=== PATIENT | female | born 1940 | race Two or more races ===

== ENCOUNTER 2023-10-17 14:16 | Inpatient (IN) | payer MEDICARE, OTHER ==
[~2023-10-17] VITALS: Ht 167.6 cm; Wt 64.9 kg
[2023-10-17 15:27] LABS: Basophils # (auto) 0.1 10 ^3/uL (0-0.2); Basophils % (auto) 1.1 % (0.0-2.0); Eosinophils # (auto) 0.1 10 ^3/uL (0-0.8); Eosinophils % (auto) 2.3 % (0.0-7.0); Hematocrit 29.6 % (36.0-46.0); Hemoglobin 9.8 g/dL (12.2-16.2); Lymphocytes # (auto) 0.6 10 ^3/uL (0.4-5.4); Lymphocytes % (auto) 10.4 % (10.0-50.0); Mean Corpuscular Hemoglobin 30.7 pg (28.0-32.0); Mean Corpuscular Hgb Conc. 32.9 g/dL (32.0-36.0); Mean Corpuscular Volume 93.2 fL (80.0-100.0); Monocytes # (auto) 0.6 10 ^3/uL (0-1.3); Monocytes % (auto) 9.3 % (0.0-12.0); Neutrophils # (auto) 4.7 10 ^3/uL (1.6-8.6); Neutrophils % (auto) 76.9 % (37.0-80.0); Nucleated Red Blood Cells % 0.1 %; Red Blood Cells 3.18 10^6/uL (4.0-5.20); Red Cell Distribution Width 15.6 % (11.8-14.3); White Blood Cell 6.1 10^3/uL (4.4-10.8)
[2023-10-17 15:45] LABS: Alanine Aminotransferase 27 U/L (7-40); Alkaline Phosphatase 57 U/L (46-116); Anion Gap 8 (5-15); Aspartate Aminotransferase 23 U/L (13-40); BUN/Creatinine Ratio 14.6 (10.0-20.0); Blood Urea Nitrogen 25 mg/dL (9-23); Calcium 9.5 mg/dL (8.7-10.4); Carbon Dioxide 24 mmol/L (20-30); Chloride 111 mmol/L (98-107); Glucose 91 mg/dL (74-106); Potassium 4.4 mmol/L (3.5-5.1); Sodium 143 mmol/L (136-145)
[2023-10-17 15:46] LABS: Albumin 3.8 g/dL (3.2-4.8); Bilirubin, Total 0.4 mg/dL (0.2-1.0); Total Protein 5.6 g/dL (5.7-8.2)
[2023-10-17 16:00] LABS: INR 1.03 (0.9-1.15); Partial Thromboplastin Time 27.1 SEC (24.5-34.5); Prothrombin Time 10.9 sec (9.3-11.8)
[2023-10-17] MEDS ORDERED: NITROGLYCERIN 0.4 MG SL TAB SL PRN (20:45)
[2023-10-17] MEDS ORDERED: ONDANSETRON HCL 4 MG/2 ML VIAL IV PRN (20:45)
[2023-10-17] MEDS ORDERED: ACETAMINOPHEN 325 MG TAB PO PRN (20:45)
[2023-10-17] MEDS ORDERED: MORPHINE SULFATE INJ 2 MG/ml SYRG IV PRN (20:45)
[2023-10-17] MEDS: ATORVASTATIN 20 MG TAB PO SCH (23:00)
[2023-10-18] VITALS (9 sets, daily range): BP systolic 128–180; BP diastolic 45–57; PULSE 63–85; RESP 14–20; TEMP 97.6–98.7; O2SAT 97–100
[2023-10-18] MEDS: cloNIDine HCL 0.1 MG TAB PO ONE (04:57)
[2023-10-18 06:42] LABS: Chloride 112 mmol/L (98-107); Potassium 4.2 mmol/L (3.5-5.1); Sodium 145 mmol/L (136-145)
[2023-10-18 06:43] LABS: Anion Gap 9 (5-15); Carbon Dioxide 24 mmol/L (20-30)
[2023-10-18 06:44] LABS: Calcium 9.3 mg/dL (8.7-10.4)
[2023-10-18 06:48] LABS: BUN/Creatinine Ratio 7.7 (10.0-20.0); Blood Urea Nitrogen 13 mg/dL (9-23); Glucose 104 mg/dL (74-106)
[2023-10-18] MEDS: ASPirin 81 mg TAB PO SCH (10:00)
[2023-10-18] MEDS: ENOXAPARIN SOD 30 MG/0.3 ML SYRINGE SC SCH (10:00)
[2023-10-18] MEDS: CLOPIDOGREL BISULFATE 75 MG TAB PO SCH (10:01)
[2023-10-18] MEDS: dilTIAZem 120MG ER CAP PO SCH (10:03)
[2023-10-18] MEDS: VALSARTAN 80 MG TAB PO SCH (10:12)
[2023-10-18 12:22] LABS: Triglycerides 64 mg/dL (< 150)
[2023-10-18 12:23] LABS: LDL Cholesterol 59 mg/dL (< 100)
[2023-10-18 12:24] LABS: Cholesterol 136 mg/dL (< 200); HDL Cholesterol 58 mg/dL (40-59)
[2023-10-18] MEDS: LABETALOL HCL 5 MG/ML 4ML SYRINGE IV PRN (15:32)
[2023-10-19] VITALS (8 sets, daily range): BP systolic 102–166; BP diastolic 44–74; PULSE 69–98; RESP 14–18; TEMP 97.8–98.4; O2SAT 96–99
[2023-10-19 06:30] LABS: Basophils # (auto) 0.1 10 ^3/uL (0-0.2); Eosinophils # (auto) 0.2 10 ^3/uL (0-0.8); Hematocrit 25.2 % (36.0-46.0); Hemoglobin 8.3 g/dL (12.2-16.2); Monocytes # (auto) 0.5 10 ^3/uL (0-1.3); Neutrophils # (auto) 1.8 10 ^3/uL (1.6-8.6); Nucleated Red Blood Cells % 0.2 %; Red Blood Cells 2.66 10^6/uL (4.0-5.20); White Blood Cell 3.4 10^3/uL (4.4-10.8)
[2023-10-19 06:32] LABS: Basophils % (auto) 2.8 % (0.0-2.0); Eosinophils % (auto) 6.6 % (0.0-7.0); Lymphocytes # (auto) 0.9 10 ^3/uL (0.4-5.4); Lymphocytes % (auto) 25.3 % (10.0-50.0); Mean Corpuscular Hemoglobin 31.2 pg (28.0-32.0); Mean Corpuscular Hgb Conc. 32.9 g/dL (32.0-36.0); Mean Corpuscular Volume 94.8 fL (80.0-100.0); Monocytes % (auto) 13.5 % (0.0-12.0); Neutrophils % (auto) 51.8 % (37.0-80.0); Red Cell Distribution Width 15.5 % (11.8-14.3)
[2023-10-19 06:38] LABS: Chloride 114 mmol/L (98-107); Potassium 4.2 mmol/L (3.5-5.1); Sodium 145 mmol/L (136-145)
[2023-10-19 06:39] LABS: Anion Gap 7 (5-15); Carbon Dioxide 24 mmol/L (20-30)
[2023-10-19 06:40] LABS: Calcium 8.7 mg/dL (8.5-10.1)
[2023-10-19 06:45] LABS: BUN/Creatinine Ratio 8.6 (10.0-20.0); Blood Urea Nitrogen 16 mg/dL (9-23); Glucose 102 mg/dL (74-106)
[2023-10-19 07:06] LABS: Free Thyroxine Index 3.9 (1.2-4.9); Thyroxine (T4) 10.7 ug/dL (4.5-12.0)
[2023-10-19 10:09] LABS: % Iron Saturation 19.2 % (15-50)
[2023-10-19 11:51] LABS: Urine Bacteria None Seen /hpf (None Seen)
[2023-10-19 12:10] LABS: Urine Blood Negative /uL (Negative); Urine Clarity Clear (Clear); Urine Color Light-Yellow (Yellow); Urine Protein, UAD 1+ (Negative); Urine Specific Gravity 1.013 (1.001-1.035); Urine Urobilinogen Normal (Negative); Urine WBC 20 /hpf (0 - 5); Urine pH 7.5 (5.0-9.0)
[2023-10-19] MEDS: hydrALAZINE HCL 20 MG/ML VL IV PRN (12:48)
[2023-10-19] MEDS: LACTULOSE 20Gm/30ML SOLN PO ONE (13:00)
[2023-10-19] MEDS: amLODIPine BESYLATE 5 MG TAB PO ONE (13:23)
[2023-10-19] MEDS: PANTOPRAZOLE 40 MG/10 ML VIAL INJ IV ONE (16:36)
[2023-10-19] MEDS: METOPROLOL SUCCINATE XL 50 MG TAB PO ONE (16:44)
[2023-10-19 18:49] LABS: Hematocrit 27.8 % (36.0-46.0); Hemoglobin 9.1 g/dL (12.2-16.2)
[2023-10-19 20:36] LABS: Amphetamine Screen, Urine Neg (NEGATIVE); Barbiturate Scree,Urine Neg (NEGATIVE); Benzodiazephine Screen, Urine Neg (NEGATIVE); Cocaine Screen, Urine Neg (NEGATIVE); Opiate Scree,Urine Neg (NEGATIVE); Phencyclidine Screen, Urine Neg (NEGATIVE)
[2023-10-19 20:37] LABS: Cannabinoid Screen, Urine Neg (NEGATIVE)
[2023-10-19 20:38] LABS: Creatinine, Urine 97.1 mg/dL (30.0-125.0)
[2023-10-19] MEDS: cefTRIAXone 1GM/50ML D5W 50 ML IV ONE (20:51)
[2023-10-19] MEDS: PANTOPRAZOLE 40 MG/10 ML VIAL INJ IV SCH (22:15)
[2023-10-20] VITALS (8 sets, daily range): BP systolic 137–169; BP diastolic 51–69; PULSE 60–77; RESP 17–19; TEMP 97.6–98.8; O2SAT 93–99
[2023-10-20] MEDS: TEMAZEPAM 15 MG CAP PO ONE ×2 (00:46→22:09)
[2023-10-20] MEDS: cefTRIAXone 1GM/50ML D5W 50 ML IV SCH (09:57)
[2023-10-20] MEDS: amLODIPine BESYLATE 5 MG TAB PO SCH (09:58)
[2023-10-20] MEDS: METOPROLOL SUCCINATE XL 50 MG TAB PO SCH (09:59)
[2023-10-20] MEDS: diphenhdrAMINE HCL 25 MG CAP PO PRN (11:52)
[2023-10-21] VITALS (8 sets, daily range): BP systolic 148–167; BP diastolic 58–76; PULSE 65–78; RESP 12–20; TEMP 97.3–98; O2SAT 98–100
[2023-10-21] MEDS: MELATONIN 5 MG TAB PO ONE (02:17)
[2023-10-21 08:33] LABS: Basophils # (auto) 0.1 10 ^3/uL (0-0.2); Eosinophils # (auto) 0.3 10 ^3/uL (0-0.8); Eosinophils % (auto) 5.4 % (0.0-7.0); Hematocrit 33.9 % (36.0-46.0); Hemoglobin 10.5 g/dL (12.2-16.2); Lymphocytes # (auto) 0.8 10 ^3/uL (0.4-5.4); Lymphocytes % (auto) 14.9 % (10.0-50.0); Mean Corpuscular Hgb Conc. 31.1 g/dL (32.0-36.0); Mean Corpuscular Volume 99.8 fL (80.0-100.0); Monocytes # (auto) 0.5 10 ^3/uL (0-1.3); Monocytes % (auto) 9.5 % (0.0-12.0); Neutrophils # (auto) 3.8 10 ^3/uL (1.6-8.6); Neutrophils % (auto) 69.2 % (37.0-80.0); Red Cell Distribution Width 15.7 % (11.8-14.3); White Blood Cell 5.5 10^3/uL (4.4-10.8)
[2023-10-21 09:01] LABS: Alanine Aminotransferase 20 U/L (7-40); Alkaline Phosphatase 60 U/L (46-116); Anion Gap 8 (5-15); BUN/Creatinine Ratio 8.7 (10.0-20.0); Blood Urea Nitrogen 13 mg/dL (9-23); Calcium 9.3 mg/dL (8.5-10.1); Carbon Dioxide 21 mmol/L (20-30); Chloride 117 mmol/L (98-107); Glucose 88 mg/dL (74-106); Potassium 4.4 mmol/L (3.5-5.1); Sodium 146 mmol/L (136-145)
[2023-10-21 09:02] LABS: Albumin 3.7 g/dL (3.2-4.8); Aspartate Aminotransferase 22 U/L (13-40); Bilirubin, Total 0.5 mg/dL (0.2-1.0); Total Protein 5.7 g/dL (5.7-8.2)
[2023-10-21] MEDS ORDERED: SUCR1TAB31 OR ×2 (15:32→17:28)
[2023-10-21] MEDS ORDERED: LEVO125T7 PO ×2 (15:32→17:28)
[2023-10-21] MEDS ORDERED: PANT40T PO ×2 (15:32→17:28)
[2023-10-21] MEDS: SUCRALFATE 1 GM/10 ML ORAL SUSP GT SCH (17:00)
[2023-10-21] MEDS ORDERED: CARVEDILOL 12.5 MG TAB PO SCH (22:00)
[2023-10-22] MEDS ORDERED: CLOPIDOGREL BISULFATE 75 MG TAB PO SCH (10:00)
== END 2023-10-21 18:20 | disposition home or self-care (01) | DRG 917 ==
LOC: ER 14:16 → EDBD 14:16 → TELE 20:59 → TELE-WESTW 10-18 04:05
PROVIDERS: ADMIT Internal Medicine; ATTEND Internal Medicine
PROC: 0DB78ZX Excision of Stomach, Pylorus, Via Natural or Artificial Opening Endoscopic, Diagnostic (ICD-10-PCS; 2023-10-21)
PROC: 0DB68ZZ Excision of Stomach, Via Natural or Artificial Opening Endoscopic (ICD-10-PCS; 2023-10-21)
PROC: 0DB98ZX Excision of Duodenum, Via Natural or Artificial Opening Endoscopic, Diagnostic (ICD-10-PCS; principal; 2023-10-21 11:32)
DX: T38.1X1A Poisoning by thyroid hormones and substitutes, accidental (unintentional), initial encounter (principal); N17.0 Acute kidney failure with tubular necrosis; I49.1 Atrial premature depolarization; I12.9 Hypertensive chronic kidney disease with stage 1 through stage 4 chronic kidney disease, or unspecified chronic kidney disease; I25.10 Atherosclerotic heart disease of native coronary artery without angina pectoris; I16.0 Hypertensive urgency; E78.5 Hyperlipidemia, unspecified; E89.0 Postprocedural hypothyroidism; D63.8 Anemia in other chronic diseases classified elsewhere; N18.32 Chronic kidney disease, stage 3b; K31.7 Polyp of stomach and duodenum; K29.70 Gastritis, unspecified, without bleeding; K44.9 Diaphragmatic hernia without obstruction or gangrene; Z98.61 Coronary angioplasty status; Z88.1 Allergy status to other antibiotic agents; Z87.891 Personal history of nicotine dependence; Y92.89 Other specified places as the place of occurrence of the external cause; Z79.82 Long term (current) use of aspirin
CPT/HCPCS: 36415; 71045; 76775; 80048; 80053; 80061; 80307; 81001; 82270; 82306; 82570; 82607; 82728; 83010; 83036; 83540; 83550; 83615; 83735; 83880; 84300; 84443; 84484; 85014; 85018; 85025; 85610; 85730; 86850; 86900; 86901; 93005; 93306; 96372; C9113; G0378; J3490

== ENCOUNTER 2024-11-23 09:34 | Day surgery (SDC) | payer MEDICARE, OTHER ==
[2024-11-20 13:32] LABS: Urine Protein, UAD Negative (Negative)
[2024-11-20 13:36] LABS: Hematocrit 28.4 % (36.0-46.0); Hemoglobin 9.9 g/dL (12.2-16.2); Mean Corpuscular Hemoglobin 31.3 pg (28.0-32.0); Mean Corpuscular Volume 90.1 fL (80.0-100.0); Nucleated Red Blood Cells % 0.1 %
[2024-11-20 13:37] LABS: Albumin 4.3 g/dL (3.2-4.8); Alkaline Phosphatase 65 U/L (46-116); Anion Gap 6 (5-15); BUN/Creatinine Ratio 16.8 (10.0-20.0); Calcium 10.1 mg/dL (8.7-10.4); Carbon Dioxide 29 mmol/L (20-31); Chloride 98 mmol/L (98-107); Potassium 4.2 mmol/L (3.5-5.1); Total Protein 6.1 g/dL (5.7-8.2)
[2024-11-20 13:38] LABS: Bilirubin, Total 0.4 mg/dL (0.2-1.0)
[2024-11-20 13:43] LABS: Alanine Aminotransferase 45 U/L (7-40); Blood Urea Nitrogen 53 mg/dL (9-23); Glucose 129 mg/dL (74-106); Sodium 133 mmol/L (136-145)
[2024-11-20 14:06] LABS: INR 0.97 (0.9-1.15); Partial Thromboplastin Time 27.9 SEC (24.5-34.5); Prothrombin Time 10.3 sec (9.3-11.8)
[~2024-11-23] VITALS: Ht 167.6 cm; Wt 54.4 kg
[~2024-11-23 09:34] MED LIST: ATOR10TA52 PO; CALC0.25 PO; CLON0.1T PO; CLOP75TA28 PO; DILT-29 PO; EZET10TA22 PO; FAMO20TA10 PO; FERR1TAB31 PO; FLUT1SPR5; HYDR-4924 PO; LEV75T PO; LEVO125T7 PO; PANT40T PO; VALS40TA2 PO
[2024-11-23] MEDS ORDERED: MIDAZOLAM HCL 2MG/2ML 2ml VIAL (1mg/ml) ONE (10:28)
[2024-11-23] MEDS ORDERED: PROPOFOL 10 MG/ML 20 ML IV ONE (10:28)
[2024-11-23] MEDS ORDERED: fentaNYL CITRATE 100 MCG/2 ML VL ONE (10:28)
[2024-11-23] MEDS ORDERED: LIDOCAINE 2% (LOCAL ANESTH.) PF 5ml SDV ONE (10:28)
[2024-11-23] MEDS ORDERED: HYDROmorphone HCL 2 MG/ML VL/or syr IV PRN (10:45)
[2024-11-23 11:00] VITALS: PULSE 60; RESP 16; TEMP 97.4; O2SAT 100
--- NOTE | 2024-11-23 11:04 | DVHOP2 ---
Operative Report DATE OF OPERATION: 11/23/24 PROCEDURE: Colonoscopy with cold biopsy polypectomy. PREOPERATIVE INDICATION: The patient is a 84 -year-old female undergoing colonoscopy for surveillance with personal history of colon polyps, anemia and heme-positive stools POSTOPERATIVE DIAGNOSES: 1. Patient had two diminutive benign-appearing sigmoid excrescences that were seen and removed by cold biopsy forceps 2. 1+ slightly inflamed internal hemorrhoids with hypertrophied anal papilla 3. Mild tortuosity of the colon otherwise normal examination up to the ileocolonic anastomosis PROCEDURE PERFORMED BY: Suzie Francisco M.D. SCOPE: Olympus videocolonoscope. ASA CLASS: 3. PREOPERATIVE MEDICATIONS: Mac sedationDr. Daley PROCEDURE IN DETAIL: After obtaining an informed consent, the patient was placed on left lateral decubitus position. She was then sedated with the above medications. A rectal examination was performed that was normal. The colonoscope was then passed through the anus into the rectosigmoid and through the descending, transverse, and ascending colon up to the ileocolonic anastomosis The colonoscope was then withdrawn with careful visualization of all olivarez No masses or colitis were noted. There was no clear-cut diverticular disease.. There were two diminutive benign-appearing sigmoid excrescences that were removed by cold biopsy forceps She had mild tortuosity of the colon. On retroflexion she had 1+ inflamed internal hemorrhoids with hypertrophied anal papilla The patient tolerated the procedure well without difficulty. WITHDRAWAL TIME: 8 minutes, not applicable QUALITY OF THE PREP: [place] Bowel Prep score: 9. COMPLICATIONS : None SPECIMENS: Sigmoid polyps DISPOSITION: Stable D/C to home PLAN: 1. Repeat colonoscopy base on biopsy result likely in 4-5 yrs 2. Resume GI soft diet advance as tolerated 3. Local anorectal hemorrhoidal care 4. Outpatient follow up with me in 4-6 weeks to review results and discuss further management SUZIE FRANCISCO MD Nov 23, 2024 11:03
[2024-11-23 11:50] VITALS: BP 158/59; PULSE 73; RESP 16; O2SAT 98
[2024-11-23] MEDS: ONDANSETRON HCL 4 MG/2 ML VIAL IV ONE (11:52)
== END 2024-11-23 12:10 | disposition home or self-care (01) ==
LOC: GI 09:34
PROVIDERS: ATTEND Internal Medicine Gastroenterology
DX: R19.5 Other fecal abnormalities (principal); K63.5 Polyp of colon; K64.8 Other hemorrhoids; K63.89 Other specified diseases of intestine; K64.4 Residual hemorrhoidal skin tags; D64.9 Anemia, unspecified; I49.5 Sick sinus syndrome; I12.9 Hypertensive chronic kidney disease with stage 1 through stage 4 chronic kidney disease, or unspecified chronic kidney disease; N18.4 Chronic kidney disease, stage 4 (severe); J42 Unspecified chronic bronchitis; E78.00 Pure hypercholesterolemia, unspecified; E89.0 Postprocedural hypothyroidism; Z79.899 Other long term (current) drug therapy; Z86.0100 Personal history of colon polyps, unspecified; Z95.5 Presence of coronary angioplasty implant and graft; Z98.0 Intestinal bypass and anastomosis status; Z98.890 Other specified postprocedural states; Z88.1 Allergy status to other antibiotic agents
CPT/HCPCS: 36415; 45380; 80053; 81001; 85025; 85610; 85730; 88305; J2003; J2250; J2405; J2704; J3010; J7030